=== PATIENT | female | born 1990 | race Caucasian/White ===

== ENCOUNTER 2016-10-23 00:49 | Inpatient (IN) | payer OTHER ==
[~2016-10-23] VITALS: Ht 170.2 cm; Wt 115.0 kg
--- NOTE | ~2016-10-23 | DS ---
PATIENT'S NAME: KERWIN VASQUEZ [facility] AGE: 26 Y [address] ROOM: [place] [id number] LOCATION: [facility] ADMIT DATE: 10/23/2016 Discharge Summary DISCHARGE DATE: 10/25/2016 FAMILY PHYSICIAN: , MARGARETTE ATTENDING PHYSICIAN: Cristal Grant FINAL DIAGNOSES: 1. Intrauterine at 38 and half weeks. 2. Prior section. 3. Gestational diabetes. REASON FOR ADMISSION: This patient is a 26-year-old G2, P1, who was admitted with spontaneous rupture of membranes at 38 and half weeks. HOSPITAL COURSE: The patient was admitted. She had a section. , she did well. The hemoglobin was 11.7. She was ambulating well, urinating without difficulty and desired to be discharged home on day #2. Blood sugars were well controlled throughout her admission. DISCHARGE MEDICATIONS: See discharge medication list. DISCHARGE INSTRUCTIONS: The patient was given routine section discharge instructions. MD ARIELLE PABLO/modl /[id number] d: 11/03/16 1632 t: 11/15/16 1114, DISCHARGE SUMMARY
--- NOTE | ~2016-10-23 | OR ---
PATIENT'S NAME: [facility] AGE: 26 Y [address] ROOM: [place] [address] LOCATION: [facility] ADMIT DATE: 10/23/2016 OR/Procedure Report DISCHARGE DATE: 10/25/2016 FAMILY PHYSICIAN: , MARGARETTE ATTENDING PHYSICIAN: Cristal Grant SURGEON: Cristal Grant MD SLOT MACHINE MECHANIC: DATE OF PROCEDURE: 10/23/2016 PREOPERATIVE DIAGNOSES: 1. Intrauterine at 38+ weeks. 2. Prior section. 3. Gestational diabetes mellitus type A2. 4. Premature rupture of membranes. POSTOPERATIVE DIAGNOSES: 1. Intrauterine at 38+ weeks. 2. Prior section. 3. Gestational diabetes mellitus type A2. 4. Premature rupture of membranes. PROCEDURE: Repeat low transverse section. SLOT MACHINE MECHANIC SURGEON: Dr. Rodriguez. Dr. Rodriguez was necessary for adequate visualization of tissues and delivery of the fetus. ANESTHESIA: Spinal. ESTIMATED BLOOD LOSS: 600 mL. FINDINGS: Male . Apgars 8 and 9. Weight 7 pounds and 9 ounces. Intact placenta, 3-vessel cord. Clear amniotic fluid. Normal uterus, tubes, and ovaries. DRAINS: Nassar. SPECIMENS: None. COMPLICATIONS: None. INDICATIONS: This patient is a 26-year-old, G2, P1-0-0-1 female, who presented to Labor and Delivery with grossly ruptured membranes. She was scheduled for her repeat section in just a few days. She had gestational diabetes mellitus type A2, for which she was on insulin, she was on 10 units at night and was well controlled. Prior to the procedure, the risks, PATIENT'S NAME: [facility] AGE: 26 Y [address] ROOM: [place] [address] LOCATION: [facility] ADMIT DATE: 10/23/2016 OR/Procedure Report DISCHARGE DATE: 10/25/2016 FAMILY PHYSICIAN: PHYSICIAN, NO ATTENDING PHYSICIAN: Cristal Grant benefits, and alternatives to the procedure were discussed with the patient. She understood the risks to be, but not to be limited to; bleeding; infection; damage to the bowel, bladder, ureter, and surrounding organs; and desired to proceed. DESCRIPTION OF PROCEDURE: The patient was taken to the operating room where anesthesia was found to be adequate. She was prepped and draped in a dorsal supine position with leftward tilt. A Pfannenstiel skin incision was made. It was carried down to the fascia. The fascia was incised across the midline. The fascial incision was extended. The rectus muscles were . The peritoneum was entered. The bladder blade was inserted. The uterus was incised in a low transverse fashion with the scalpel. The uterine incision was extended with vertical traction. Surgeon's hand was inserted into the uterus. The head delivered. The rest of the fetus delivered. The nose and mouth were bulb suctioned. The cord was clamped and cut. The was handed to awaiting team. Cord blood was drawn. The placenta delivered with manual traction. Uterus was exteriorized and cleared of clots and debris. It was repaired with 0 Vicryl in a running locked fashion with hemostasis noted. It was returned to the abdomen. The gutters were cleared of clots and debris. The fascia was repaired with 0 Vicryl in a running fashion. Subcutaneous adipose tissue was reapproximated with 2-0 Vicryl suture. The skin was closed with 4-0 suture after irrigation and Steri-Strips were placed. CONDITION: Mother stable in room. to nursery. MD ARIELLE PABLO/rema /[id number] d: 10/25/16 1808 t: 11/03/16 0947, OPERATIVE SUMMARY
[2016-10-23] MEDS ORDERED: PRENATAL 1+1)(P1 TAB PO (01:29)
[2016-10-23] MEDS ORDERED: DICLEGIS DR 101 EACH PO (01:31)
[2016-10-23 01:41] LABS: BASOPHIL % 0.2 %; EOSINOPHIL % 0.3 %; HEMATOCRIT 35.8 % (33.0-46.0); HEMOGLOBIN 11.7 g/dL (11.0-15.0); IMMATURE GRANULOCYTE % 0.3 %; LYMPHOCYTE # 3.1 K/uL (0.8-4.0); LYMPHOCYTE % 25.3 %; MCH 26.5 pg (27.0-34.0); MCHC 32.7 gm/dL (32.0-36.5); MONOCYTE # 0.8 K/uL (0.0-1.0); MONOCYTE % 6.9 %; NEUTROPHIL # (ANC) 8.1 K/uL (1.8-7.8); NRBC % 0 /100WBC (0-0.00); PLATELET COUNT 349 K/uL (150-450); RDW-CV 14.8 % (11.9-14.6); WBC 12.1 K/uL (4.0-11.0)
[2016-10-23 01:42] LABS: RBC 4.42 M/uL (3.50-5.00)
[2016-10-23 03:10] LABS: BICARBONATE 24.2 mmol/L (18.0-23.0); PCO2 59 mmHg (35-45); PO2 11 mmHg (80-90)
[2016-10-23] MEDS ORDERED: NOVOLIN-N100 UNIT/M SUB-Q (05:28)
--- NOTE | 2016-10-23 05:47 | NUR ---
Last VS: T:98.1 P:92 R: 16 BP: 130/70 Pain ratin Last pain med: TORADOL/PERCOCET Medicated at: 0315 Effective: YES R Lung sounds: , L Lung sounds: Fundus: FIRM,MIDLINE ,AT UMBILICUS Lochia: SM,RUBRA Breasts: SOFT, Nipples: INTACT Incision: , Incision appearance: MICROFOAM DRESSING C/D/I Incision closure: Bowel sounds: HYPO Passing flatus: N Voiding well: ZABALA Significant event: PT DOING WELL. PAIN WELL CONTROLLED. MINIMAL BLEEDING. PT HAS FASTING AND 2 HR POSTPRANDIAL BLOOD SUGARS. SALINE LOCKED. ZABALA TO BE DCD @ 0900 AND PT MAY EAT THEN.
--- NOTE | 2016-10-23 17:42 | NUR ---
Last VS: T:97.9 P:86 R: 17 BP: 124/63 Pain ratin. Last pain med: Percocet/ Tordal Medicated at:1515 Effective: Yes R Lung sounds: clear, L Lung sounds: clear Fundus:firm,midline , Lochia:small, rubra Breasts: soft Nipples: graspable, intact Incision: sutured, steri strips Incision appearance: clean, dry, intact Incision closure: microfoam dressing Bowel sounds:WNL X 4 Passing flatus: N Voiding well: D/c'd Nassar @ 1200 and has not yet peed Significant event: Fasting accucheck was 104 and PP accuchecks were both 112. Afebrile. VSS. Up and walking well independently.
[2016-10-24 04:10] LABS: BASOPHIL % 0.3 %; EOSINOPHIL # 0.1 K/uL (0.0-0.5); EOSINOPHIL % 0.7 %; HEMATOCRIT 29.6 % (33.0-46.0); HEMOGLOBIN 9.5 g/dL (11.0-15.0); IMMATURE GRANULOCYTE % 0.4 %; LYMPHOCYTE # 2.7 K/uL (0.8-4.0); LYMPHOCYTE % 25.4 %; MCH 26.5 pg (27.0-34.0); MCHC 32.1 gm/dL (32.0-36.5); MCV 82.5 fl (83.0-98.0); MONOCYTE # 0.8 K/uL (0.0-1.0); MONOCYTE % 7.6 %; MPV 10.3 fl (9.4-12.4); NEUTROPHIL % 65.6 %; NRBC % 0 /100WBC (0-0.00); PLATELET COUNT 284 K/uL (150-450); RBC 3.59 M/uL (3.50-5.00); RDW-CV 15.3 % (11.9-14.6); WBC 10.7 K/uL (4.0-11.0)
--- NOTE | 2016-10-24 05:58 | NUR ---
VSS, fundus firm, 1 below, small flow,incision dry/intact with microfoam, Perc last at 2315, Morphine last at 0035, fasting and 2 hour post prandial accuchecks
[2016-10-25] MEDS ORDERED: MOTRIN800 MG PO (11:59)
[2016-10-25] MEDS ORDERED: ZOFRAN4 MG PO (12:00)
[2016-10-25] MEDS ORDERED: PERCOCET 5-3251 EACH PO (12:00)
== END 2016-10-25 15:30 | disposition disaster alternative care site (69) | DRG 766 ==
LOC: GOBS 00:49
PROVIDERS: ADMIT Obstetrics & Gynecology
PROC: 10D00Z1 Extraction of Products of Conception, Low, Open Approach (ICD-10-PCS; principal; 2016-10-23)
DX: O34.211 Maternal care for low transverse scar from previous cesarean delivery (principal); O24.419 Gestational diabetes mellitus in pregnancy, unspecified control; Z3A.38 38 weeks gestation of pregnancy; Z37.0 Single live birth; O42.02 Full-term premature rupture of membranes, onset of labor within 24 hours of rupture; Z79.4 Long term (current) use of insulin
CPT/HCPCS: J0295; J1885; J2270; J2405; J7120; Q0162